=== PATIENT | female | born 1950 | race Caucasian/White ===

== ENCOUNTER → 2018-06-30 09:37 | Outpatient (CLI) | payer MEDICARE, OTHER | END | disposition home or self-care (01) | LOC: D.LAB 08:00 → D.RT 10:00 | DX: J45.909 Unspecified asthma, uncomplicated (principal) ==

== ENCOUNTER → 2019-07-10 14:34 | Outpatient (CLI) | payer MEDICARE, OTHER | END | disposition home or self-care (01) | LOC: D.RT 06-26 11:00 → D.RAD 06-26 11:45 → D.RT 14:34 | PROVIDERS: ATTEND Internal Medicine Pulmonary Disease | DX: J45.991 Cough variant asthma (principal) ==

== ENCOUNTER 2021-02-03 10:15 | Day surgery (SDC) | payer MEDICARE, OTHER ==
[2021-02-03 10:44] LABS: BASOPHILS 0.1 % (0-2); EOSINOPHILS 2.8 % (0-7); HEMATOCRIT 43.1 % (36.0-48.0); HEMOGLOBIN 14.4 g/dL (12-16); IMMATURE GRANULOCYTES 0.2 % (0-5); LYMPHOCYTE ABS# 2.17 10x3/uL (1.18-3.74); LYMPHOCYTES 23.7 % (15-50); MCH 31.3 pg (26.0-34.0); MCHC 33.4 g/dL (31.0-37.0); MCV 93.7 fL (80.0-100.0); MONOCYTES 8.9 % (2-11); NEUTROPHIL ABS# 5.88 10x3/uL (1.56-6.13); NEUTROPHILS 64.3 % (40-80); PLATELET COUNT 262 10x3/uL (130-400); RDW 12.6 % (11.5-14.5); WBC 9.2 10x3/uL (4.8-10.8)
[2021-02-03] MEDS ORDERED: ALDACTONE50 MG PO (10:59)
[2021-02-03] MEDS ORDERED: LIPITOR40 MG PO (10:59)
[2021-02-03] MEDS ORDERED: PREVACID30 MG PO (11:00)
[2021-02-03] MEDS ORDERED: ONGLYZA5 MG PO (11:00)
[2021-02-03] MEDS ORDERED: AMBIEN10 MG PO (11:01)
[2021-02-03] MEDS ORDERED: ULTRAM50 MG PO (11:01)
[2021-02-03] MEDS ORDERED: PEPCID AC20 MG PO (11:02)
[2021-02-03] MEDS ORDERED: BAYER CHEWABLE81 MG PO (11:02)
[2021-02-03 11:08] LABS: ALBUMIN 4.2 g/dL (3.4-5.0); ANION GAP 12.6 mmol/L (8-16); BILIRUBIN - TOTAL 0.94 mg/dL (0.2-1.3); CALCIUM 9.9 mg/dL (8.5-10.1); CARBON DIOXIDE 29.4 mmol/L (21.0-32.0); CREATININE - SERUM 1.2 mg/dL (0.6-1.3); PROTEIN - SERUM 8.1 g/dL (6.4-8.2); PROTIME 12.2 SECONDS (11.6-15.0)
== END 2021-02-03 13:40 | disposition home or self-care (01) ==
LOC: D.OPS 10:15
PROVIDERS: Internal Medicine Gastroenterology
DX: R13.10 Dysphagia, unspecified (principal); R10.816 Epigastric abdominal tenderness; K21.00 Gastro-esophageal reflux disease with esophagitis, without bleeding; K22.2 Esophageal obstruction; K44.9 Diaphragmatic hernia without obstruction or gangrene; K29.70 Gastritis, unspecified, without bleeding; Z86.010 Personal history of colon polyps; K57.30 Diverticulosis of large intestine without perforation or abscess without bleeding; K64.8 Other hemorrhoids

== ENCOUNTER 2021-03-10 09:52 | Day surgery (SDC) | payer MEDICARE, OTHER ==
[~2021-03-10] VITALS: Ht 152.4 cm; Wt 76.4 kg
[~2021-03-10 09:52] MED LIST: ALDACTONE50 MG PO; AMBIEN10 MG PO; BAYER CHEWABLE81 MG PO; LIPITOR40 MG PO; ONGLYZA5 MG PO; PEPCID AC20 MG PO; PREVACID30 MG PO; ULTRAM50 MG PO
[2021-03-10 10:29] LABS: BASOPHILS 0.2 % (0-2); EOSINOPHILS 3.3 % (0-7); HEMATOCRIT 40.1 % (36.0-48.0); HEMOGLOBIN 13.6 g/dL (12-16); IMMATURE GRANULOCYTES 0.1 % (0-5); LYMPHOCYTE ABS# 1.86 10x3/uL (1.18-3.74); LYMPHOCYTES 21.9 % (15-50); MCH 31.3 pg (26.0-34.0); MCHC 33.9 g/dL (31.0-37.0); MCV 92.4 fL (80.0-100.0); MEAN PLATELET VOLUME 10.5 fL (7.4-10.4); MONOCYTES 7.5 % (2-11); NEUTROPHIL ABS# 5.68 10x3/uL (1.56-6.13); PLATELET COUNT 281 10x3/uL (130-400); RBC 4.34 10x6/uL (4.00-5.40); RDW 12.8 % (11.5-14.5); WBC 8.5 10x3/uL (4.8-10.8)
[2021-03-10 10:37] LABS: INR 1.12 (0.85-1.17); PROTIME 13.4 SECONDS (11.6-15.0)
[2021-03-10 10:43] LABS: ALBUMIN 3.8 g/dL (3.4-5.0); ANION GAP 13.6 mmol/L (8-16); BILIRUBIN - TOTAL 0.79 mg/dL (0.2-1.3); CALCIUM 9.7 mg/dL (8.5-10.1); CARBON DIOXIDE 27.3 mmol/L (21.0-32.0); CREATININE - SERUM 1.3 mg/dL (0.6-1.3); POTASSIUM - SERUM 3.9 mmol/L (3.5-5.1); PROTEIN - SERUM 7.7 g/dL (6.4-8.2)
[2021-03-10 10:47] VITALS: BP 136/64; Ht 152.4 cm; Wt 76.4 kg
--- NOTE | 2021-03-10 12:50 | NUR ---
DC TEACHING TO PT AND . VERBALIZED UNDERSTANDING. PIV REMOVED WITH CATHETER INTACT, PT DRESSING. 1305 PT DC'D VIA WC ACCOMPANIED BY THIS NURSE TO POV WITH SPOUSE DRIVING AND HAS ALL BELONGINGS AND DC PACKET.
--- NOTE | 2021-03-10 18:10 | OP ---
PATIENT NAME: JOANA GORDON MEDICAL RECORD: [id number] :48 LOCATION:[facility] ADMISSION DATE: SURGEON: NIKOLAI ADRIAN DO DATE OF OPERATION: 03/10/2021 PROCEDURE: Colonoscopy with polypectomy. INDICATION FOR PROCEDURE: Screening colonoscopy with a history of colon polyps. SCOPE: Bioscale video pediatric colonoscope. MEDICATIONS: Propofol 500 mg IV per anesthesia. WITHDRAWAL TIME: 28 minutes. ESTIMATED BLOOD LOSS: Minimal. COMPLICATIONS: None. FINDINGS AND DESCRIPTION OF PROCEDURE: Informed consent was given. The patient was made comfortable with the above medication. After reaching an adequate level of sedation by slow IV push, the patient was placed on her left side. A digital rectal examination was performed and it was normal. The endoscope was advanced under direct visualization through the rectum to the cecum, confirmed by the presence of the appendiceal orifice and ileocecal valve. The endoscope was slowly withdrawn and the mucosa was carefully examined. The prep quality was poor to fair. There were 4 polyps visualized on today's examination. Two were located in the transverse colon. One was a benign-appearing sessile polyp, which measured approximately 5-mm in diameter. It was removed using a hot snare. The larger polyp measured approximately 1 cm and it was a flat polyp with a slightly depressed center. EMR was used with an injection of isotonic saline followed by snare polypectomy. This was removed in a piecemeal fashion due to the shape and depressed center of the polyp. Any residual tissue was cauterized. In the ascending colon, there was a benign-appearing sessile polyp, which was removed using a hot snare. It measured approximately 5-mm in diameter. The final polyp was located in the descending colon. It was a benign-appearing sessile polyp, which measured approximately 4-mm in diameter. It was removed using a hot snare. There was evidence of mild diverticulosis involving the sigmoid and descending colon. Retroflexion was performed in the rectum with a normal-appearing rectal wall being visualized. The endoscope was withdrawn from the patient. The patient tolerated the procedure well and there were no complications. IMPRESSIONS: 1. Multiple polyps as described above, removed using a combination of EMR technique and hot snare polypectomy. 2. Mild diverticulosis. 3. Otherwise, normal colonoscopy. PLAN AND RECOMMENDATIONS: 1. Discharge home when recovery parameters are met. 2. Follow up biopsy specimen results. 3. High fiber diet. 4. Continue current medications. 5. Recall colonoscopy in 1 year. OPERATIVE REPORT [id number] [facility] TRANSINT:[id number] Voice Confirmation ID: [id number] DOCUMENT ID: [id number] NIKOLAI ADRIAN DO at 1810 CC: [id number] DICTATION DATE: 03/10/21 1209 CASE AIDE: 03/10/21 1544 [facility] 03/10/21 [id number] [place] [address]
== END 2021-03-10 13:05 | disposition home or self-care (01) ==
LOC: D.OPS 09:52
PROVIDERS: ATTEND Internal Medicine Gastroenterology
DX: Z12.11 Encounter for screening for malignant neoplasm of colon (principal); Z86.010 Personal history of colon polyps; K63.5 Polyp of colon; K57.30 Diverticulosis of large intestine without perforation or abscess without bleeding; K64.8 Other hemorrhoids; R13.10 Dysphagia, unspecified; K21.9 Gastro-esophageal reflux disease without esophagitis; R10.816 Epigastric abdominal tenderness